=== PATIENT | male | born 1995 | race American Indian/Alaskan Native ===

== ENCOUNTER 2016-09-29 21:46 | Emergency (ER) | payer OTHER ==
[2016-09-29 23:25] VITALS: BMI 17.6
[2016-09-29] MEDS ORDERED: Alum-Mag Hydrox-Simethicone Susp (30 mL) PO STA (23:29)
[2016-09-29] MEDS ORDERED: Atrop/Hyosc/Scopal/PB Elixir (120 ml) PO STA (23:29)
[2016-09-29 23:32] VITALS: O2SAT 100
[2016-09-30 00:13] LABS: PH,URINE 7.5 (4.7-8.0); URINE BILIRUBIN NEGATIVE (NEGATIVE); URINE BLOOD NEGATIVE (NEGATIVE); URINE GLUCOSE (UA) NEGATIVE (NEGATIVE); URINE KETONE 40 mg/dL (NEGATIVE); URINE LEUKOCYTE ESTERASE NEGATIVE Leu/uL (NEGATIVE); URINE PROTEIN 30 mg/dL (<30 mg/dL)
[2016-09-30 00:16] LABS: URINE APPEARANCE SL CLOUDY (CLEAR); URINE COLOR YELLOW (YELLOW)
--- NOTE | 2016-09-30 00:19 | ED PDOC ---
Arrival/HPI <Rodrigo Sanchez - Last Filed: 09/30/16 01:30> - General Historian: Patient - History of Present Illness Time/Duration: < week (3 days) Symptom Onset: Gradual Symptom Course: Unchanged Quality: Burning Activities at Onset: Rest, Light Context: Home <Nupur Wilkerson - Last Filed: 09/30/16 02:58> - General Chief Complaint: Chest Pain Time Seen by Provider: 09/29/16 23:21 - History of Present Illness Narrative History of Present Illness (Text): 09/29/16 23:25 21 year old male, whose past medical history includes gastritis, who presents to the Emergency department complaining of 3 day history of epigastric pain. Patient describes pain as a burning sensation in the epigastric region. Patient states 1 month prior he was diagnosed with gastritis and had an endoscopy performed. Patient states symptoms woke him up from sleep 2 days at 05:00 prior due to pain. Patient states he has not been eating for 3 days due to pain. Patient was seen at [facility] yesterday for similar symptoms, given medication, told everything was normal, and discharged home. Patient states he has been taking Zofran and Pepcid with no improvement. Patient complaining of nausea, epigastric pain, nausea, and a burning sensation in to his chest. Patient denies any fever, chills, shortness of breath, vomiting, diarrhea, urinary symptoms, back pain, neck pain, headache, dizziness, or any other complaints. (Nupur Wilkerson) Past Medical History - Provider Review Nursing Documentation Reviewed: Yes - Infectious Disease Hx of Infectious Diseases: None - Psychiatric Hx Substance Use: Yes - Anesthesia Hx Anesthesia: No <Nupur Wilkerson - Last Filed: 09/30/16 02:58> Family/Social History - Physician Review Nursing Documentation Reviewed: Yes Family/Social History: Unknown Family HX Smoking Status: Light Smoker < 10 Cigarettes Daily Hx Alcohol Use: Yes Frequency of alcohol use: Socially Hx Substance Use: Yes Substance used: marijuana <Nupur Wilkerson - Last Filed: 09/30/16 02:58> Allergies/Home Meds <Rodrigo Sanchez - Last Filed: 09/30/16 01:30> <Nupur Wilkerson - Last Filed: 09/30/16 02:58> Allergies/Adverse Reactions: Allergies No Known Allergies Allergy (Verified 09/29/16 23:25) Review of Systems - Physician Review All systems were reviewed & negative as marked: Yes - Review of Systems Constitutional: Normal. absent: Fevers Eyes: Normal ENT: Normal Respiratory: Normal. absent: SOB, Cough Gastrointestinal: Abdominal Pain, Vomiting Genitourinary Male: Normal. absent: Dysuria, Frequency Musculoskeletal: Normal. absent: Back Pain, Neck Pain Skin: Normal. absent: Rash Neurological: Normal. absent: Headache, Dizziness Endocrine: Normal Hemo/Lymphatic: Normal Psychiatric: Normal <Nupur Wilkerson - Last Filed: 09/30/16 02:58> Physical Exam Vital Signs Reviewed: Yes Temperature: Afebrile Blood Pressure: Normal Pulse: Regular Respiratory Rate: Normal Appearance: Positive for: Well-Appearing, Non-Toxic, Comfortable Pain Distress: None Mental Status: Positive for: Alert and Oriented X 3 - Systems Exam Head: Present: Atraumatic, Normocephalic Pupils: Present: PERRL Extroacular Muscles: Present: EOMI Conjunctiva: Present: Normal Mouth: Present: Moist Mucous Membranes Neck: Present: Normal Range of Motion Respiratory/Chest: Present: Clear to Auscultation, Good Air Exchange. No: Respiratory Distress, Accessory Muscle Use Cardiovascular: Present: Regular Rate and Rhythm, Normal S1, S2. No: Murmurs Abdomen: Present: Tenderness (Epigastric tenderness), Normal Bowel Sounds. No: Distention, Peritoneal Signs Back: Present: Normal Inspection Upper Extremity: Present: Normal Inspection. No: Cyanosis, Edema Lower Extremity: Present: Normal Inspection. No: Edema Neurological: Present: GCS=15, Speech Normal Skin: Present: Warm, Dry, Normal Color. No: Rashes Psychiatric: Present: Alert, Oriented x 3, Normal Insight, Normal Concentration <Nupur Wilkerson - Last Filed: 09/30/16 02:58> Vital Signs Temp Pulse Resp BP Pulse Ox 09/29/16 23:31 99.7 F H 60 17 144/75 100 Medical Decision Making <Rodrigo Sanchez - Last Filed: 09/30/16 01:30> - Lab Interpretations I have reviewed the lab results: Yes <Nupur Wilkerson Last Filed: 09/30/16 02:58> ED Course and Treatment: 09/29/16 23:25 21-year-old male presents with chest pain and epigastric pain. Patient with a history of gastritis. Vital signs are stable. Patient nontoxic well-appearing with minimal epigastric tenderness CBC within normal limits CMP within normal limits Amylase 128 Lipase within normal limits EKG shows sinus bradycardia at 58 bpm normal axis normal intervals no ST elevations Urinalysis: Ketones Chest x-ray shows no infiltrate or effusion. No cardiomegaly Patient was given Maalox and in the emergency room. He was given Pepcid IV. He was given a liter of fluid. Upon reassessment the patient is feeling better. His abdominal pain has resolved. The abdomen is soft nontender nondistended. I discussed the results and after the patient otherwise follow-up with the GI doctor within the next 2 days. Patient was advised immediate return is symptoms worsen persist or if new concerning symptoms develop Patient verbalizes understanding of discharge instructions and need for immediate followup. all aspects of this case were discussed the attending of record. Impression: Gastritis Increase fluids Prilosec once daily; take 30 minutes before breakfast Avoid Motrin, Aleve, Naprosyn, Advil, ibuprofen Avoid spicy foods, red sauce, caffeine, coffee Follow-up with a GI doctor within the next 2 days The primary care physician within the next 2 days Return immediately if symptoms worsen persist or if new concerning symptoms develop (Nupur Wilkerson) - Lab Interpretations Lab Results: 09/30/16 00:30 09/30/16 00:30 Lab Results 09/30/16 00:30: WBC 8.2, RBC 5.11, Hgb 15.1, Hct 43.5, MCV 85.1, MCH 29.5, MCHC 34.7, RDW 12.1, Plt Count 281, MPV 8.7, Gran % 65.8, Lymph % (Auto) 27.3, [place] % (Auto) 6.3 H, Eos % (Auto) 0.4 L, Baso % (Auto) 0.2, Gran # 5.39, Lymph # 2.2 , [place] # 0.5, Eos # 0.0, Baso # 0.02 09/30/16 00:30: Sodium 143, Potassium 4.5, Chloride 103, Carbon Dioxide 24, Anion Gap 21 H, BUN 10, Creatinine 0.8, Est GFR ( Amer) > 60, Est GFR ( Non-Af Amer) > 60, Random Glucose 89, Calcium 10.0, Total Bilirubin 1.3, AST 29 , ALT 38, Alkaline Phosphatase 61, Total Protein 8.2, Albumin 4.9 H, Globulin 3.2, Albumin/Globulin Ratio 1.5, Amylase 128 H, Lipase 81 09/29/16 23:58: Urine Color Yellow, Urine Appearance Sl cloudy, Urine pH 7.5, Ur Specific [place] 1.020, Urine Protein 30 H, Urine Glucose (UA) Negative, Urine Ketones 40 H, Urine Blood Negative, Urine Nitrate Negative, Urine Bilirubin Negative, Urine Urobilinogen 1.0 H, Ur Leukocyte Esterase Negative, Urine RBC 0 - 2, Urine WBC 0 - 2, Ur Epithelial Cells 0 - 2, Urine Bacteria Few - RAD Interpretation Radiology Orders: 09/29/16 23:32 CHEST PORTABLE [RAD] Stat - Medication Orders Current Medication Orders: Discontinued Medications Al Hydrox/Mg Hydrox/Simethicone (Maalox Plus 30 Ml) 30 ml PO STAT STA Stop: 09/29/16 23:30 Last Admin: 09/30/16 00:29 Dose: 30 ml [place]/Phenobarbital ( Elixir) 10 ml PO STAT STA Stop: 09/29/16 23:30 Last Admin: 09/30/16 00:28 Dose: 10 ml Famotidine (Pepcid) 20 mg IVP STAT STA Stop: 09/29/16 23:33 Last Admin: 09/30/16 00:36 Dose: 20 mg Sodium Chloride (Sodium Chloride 0.9%) 1,000 mls @ 999 mls/hr IV .Q1H1M STA Stop: 09/30/16 00:29 Last Admin: 09/30/16 02:12 Dose: 999 mls/hr - PA / [employer] / Resident Statement MD/DO has reviewed & agrees with the documentation as recorded. <Rodrigo Sanchez - Last Filed: 09/30/16 01:30> - Scribe Statement The provider has reviewed the documentation as recorded by the Scribe <Nupur Wilkerson - Last Filed: 09/30/16 02:58> - Scribe Statement Penny Correa Provider Scribe Attestation: All medical record entries made by the Scribe were at my direction and personally dictated by me. I have reviewed the chart and agree that the record accurately reflects my personal performance of the history, physical exam, medical decision making, and the department course for this patient. I have also personally directed, reviewed, and agree with the discharge instructions and disposition. (Nupur Wilkerson) Disposition/Present on Arrival <Rodrigo Sanchez - Last Filed: 09/30/16 01:30> - Present on Arrival Any Indicators Present on Arrival: No History of DVT/PE: No History of Uncontrolled Diabetes: No Urinary Catheter: No History of Decub. Ulcer: No History Surgical Site Infection Following: None - Disposition Have Diagnosis and Disposition been Completed?: Yes Disposition Time: 02:56 Patient Plan: Discharge <Nupur Wilkerson - Last Filed: 09/30/16 02:58> - Disposition Diagnosis: Gastritis Disposition: HOME/ ROUTINE Condition: GOOD Discharge Instructions (ExitCare): Gastritis (ED) Additional Instructions: Increase fluids Prilosec once daily; take 30 minutes before breakfast Avoid Motrin, Aleve, Naprosyn, Advil, ibuprofen Avoid spicy foods, red sauce, caffeine, coffee Follow-up with a GI doctor within the next 2 days The primary care physician within the next 2 days Return immediately if symptoms worsen persist or if new concerning symptoms develop Prescriptions: Omeprazole Magnesium [Prilosec Otc] 20 mg PO DAILY #30 tablet.dr Referrals: Tylor Crews MD [Primary Care Provider] - Follow up with primary Anshul Barba MD [Staff Provider] - Follow up with primary Forms: [employer] (Ch[place])
[2016-09-30 00:36] LABS: URINE BACTERIA FEW (NEG); URINE EPITHELIAL CELLS 0 - 2 /hpf (0-5); URINE RBC 0 - 2 /hpf (0-2); URINE WBC 0 - 2 /hpf (0-6)
[2016-09-30] MEDS: Sodium Chloride 0.9% 1,000 ML IV STA ×2 (00:36→02:12)
[2016-09-30 00:45] LABS: BASO # 0.02 K/mm3 (0.0-2.0); BASO % 0.2 % (0.0-3.0); EOS % 0.4 % (1.5-5.0); GRAN # 5.39 (1.4-6.5); GRAN % 65.8 % (50.0-68.0); HEMATOCRIT 43.5 % (42.0-52.0); LYMPH # 2.2 (1.2-3.4); LYMPH % 27.3 % (22.0-35.0); MEAN CELL VOLUME 85.1 fl (80.0-105.0); MEAN CORPUSCULAR HEMOGLOBIN 29.5 pg (25.0-35.0); MEAN CORPUSCULAR HGB CONC 34.7 g/dl (31.0-37.0); MEAN PLATELET VOLUME 8.7 fl (7.0-11.0); MONO # 0.5 (0.1-0.6); MONO % 6.3 % (1.0-6.0); RED CELL DISTRIBUTION WIDTH 12.1 % (11.5-14.5); WHITE BLOOD COUNT 8.2 10^3/ul (4.5-11.0)
[2016-09-30 01:27] LABS: ALB/GLOB RATIO 1.5 (1.1-1.8); ALKALINE PHOSPHATASE 61 U/L (38-133); ALT/SGPT 38 U/L (7-56); AMYLASE 128 U/L (35-125); AST/SGOT 29 U/L (15-59); BILIRUBIN,TOTAL 1.3 mg/dL (0.2-1.3); BLOOD UREA NITROGEN 10 mg/dL (7-21); CARBON DIOXIDE 24 mmol/L (21-33); CHLORIDE 103 mmol/L (98-107); GFR AFRICAN-AMERICAN > 60; GLUCOSE,RANDOM 89 mg/dL (70-110); LIPASE 81 U/L (23-300); POTASSIUM 4.5 mmol/L (3.6-5.0); SODIUM 143 mmol/L (132-148); TOTAL PROTEIN 8.2 g/dL (5.8-8.3)
[2016-09-30 02:55] VITALS: BP 143/85; PULSE 79; RESP 18; TEMP 98
--- NOTE | 2016-09-30 07:37 | RAD ---
HISTORY: epigastric pain COMPARISON: No prior. FINDINGS: LUNGS: No active pulmonary disease. PLEURA: No significant pleural effusion identified, no pneumothorax apparent. CARDIOVASCULAR: Normal. OSSEOUS STRUCTURES: No significant abnormalities. VISUALIZED UPPER ABDOMEN: Normal. OTHER FINDINGS: None. IMPRESSION: No active disease.
--- NOTE | 2016-09-30 20:03 | CARD ---
APPROVED REPORT EKG Measurement Heart [id number] <Conclusion> Sinus bradycardia Septal infarct, age undetermined Abnormal ECG
== END 2016-09-30 02:55 | disposition home or self-care (01) ==
LOC: MERGE 21:46 → ED 21:46
DX: K29.70 Gastritis, unspecified, without bleeding (principal)
CPT/HCPCS: 71010; 80053; 81001; 82150; 83690; 85025; 93005; 96361; 96374; 99284; J7040